=== PATIENT | male | born 1975 | race African-American/Black ===

== ENCOUNTER 2016-06-24 22:40 | Emergency (ER) | payer SELFPAY ==
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
[~2016-06-24 22:40] MED LIST: ALBUTEROL17 GM INH; DOXYCYCLINE HY100 M1 PO; DOXYCYCLINE PO; FLAGYL PO; FLEXERIL PO; IBUPROFEN PO; NAPROXEN PO; NO MEDICATIONS; QUINAM PO; VICODIN PO
[2016-06-24] MEDS ORDERED: NO MEDICATIONS (22:50)
== END 2016-06-25 01:04 | disposition home or self-care (01) ==
LOC: SED 22:40
DX: S13.4XXA Sprain of ligaments of cervical spine, initial encounter (principal); S23.3XXA Sprain of ligaments of thoracic spine, initial encounter; S40.011A Contusion of right shoulder, initial encounter; J45.909 Unspecified asthma, uncomplicated; F17.200 Nicotine dependence, unspecified, uncomplicated; V49.00XA Driver injured in collision with unspecified motor vehicles in nontraffic accident, initial encounter
CPT/HCPCS: 72040; 72072; 73030; 99284